=== PATIENT | male | born 1960 | race Caucasian/White ===

== ENCOUNTER 2021-01-05 11:41 | Emergency (ER) | payer OTHER | END 2021-01-05 14:10 | disposition home or self-care (01) | LOC: ERS 11:41 | DX: S05.02XA Injury of conjunctiva and corneal abrasion without foreign body, left eye, initial encounter (principal); B35.6 Tinea cruris; E11.9 Type 2 diabetes mellitus without complications; I10 Essential (primary) hypertension; F17.210 Nicotine dependence, cigarettes, uncomplicated; Z79.4 Long term (current) use of insulin; W22.8XXA Striking against or struck by other objects, initial encounter | CPT/HCPCS: 99283 ==